=== PATIENT | female | born 1985 | race Caucasian/White ===

== ENCOUNTER → 2021-05-14 | Outpatient (CLI) | payer OTHER ==
--- NOTE | 2021-05-14 17:12 | MR ---
EXAMINATION TYPE: MR brain wo/w con DATE OF EXAM: 05/14/2021 COMPARISON: MRI brain 11/24/2020 from outside institution HISTORY: Daily headaches x 4-5 months, pre-syncope TECHNIQUE: Multiplanar, multisequence images of the brain and brainstem is performed without and with IV contras t, utilizing 14 mL intravenous Gadavist . FINDINGS: Diffusion weighted images demonstrate no evidence of a recent infarct or other diffusion ab normality. There is no extra-axial fluid collection or significant white matter signal abnormality. The ventricular system and cisternal spaces are normal in size and appearance. The brain volume is age appropriate. Within the right frontal lobe there is a focus which is stable in size showing popcorn-type and a hon eycomb mixed low and increased signal, possible hemosiderin rim and septated appearance, some central enhancement following contrast administration. Blooming artifact is present as on prior on susceptib ility weighted images. Midline structures demonstrate stable morphology, there is a partially empty sella. The craniocervic al junction appears within normal limits. Post contrast images demonstrate no abnormal enhancement. The dural venous sinuses appear patent. The visualized sinuses are remarkable for some inflammatory c hange within the ethmoid air cells and the globes are intact. 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 Partially empty sell a.
== END | disposition home or self-care (01) ==
LOC: RADMRIMAIN 11:46
PROVIDERS: ATTEND Physician Assistant
DX: R55 Syncope and collapse (principal); G43.909 Migraine, unspecified, not intractable, without status migrainosus
CPT/HCPCS: 70553; A9585